=== PATIENT | male | born 1960 | race Caucasian/White ===

== ENCOUNTER 2024-01-14 19:18 | Emergency (ER) | payer SELFPAY ==
[~2024-01-14] VITALS: Ht 167.6 cm; Wt 74.8 kg
[2024-01-14] MEDS: MAGNESIUM CITRATE 296 ML BOTTLE PO ONE (20:15)
[2024-01-14] MEDS ORDERED: LACTULOSE 20 G/30 ML LIQUID UDC ONE (21:38)
[2024-01-14] MEDS: LACTULOSE 20 G/30 ML LIQUID UDC PO ONE (21:38)
[2024-01-14] MEDS ORDERED: LACT10SO58 PO (21:53)
[2024-01-14] MEDS ORDERED: MAGN296S70 PO (21:53)
[2024-01-14 23:17] VITALS: BP 136/88; TEMP 98; O2SAT 98
== END 2024-01-14 23:18 | disposition home or self-care (01) ==
LOC: ER 19:28
DX: K59.00 Constipation, unspecified (principal); Z79.899 Other long term (current) drug therapy
CPT/HCPCS: 74018; A4606; A4663